=== PATIENT | female | born 2000 | race African-American/Black ===

== ENCOUNTER 2022-03-28 02:20 | Inpatient (IN) ==
[2022-03-28 02:52] LABS: Bilirubin,Urine Negative (Negative); Blood, Urine Trace mg/dL (Negative); Glucose,Urine (UA) Negative (Negative); Ketones,Urine Negative (Negative); Nitrite,Urine Negative (Negative); Protein,Urine Negative (Negative); Urine Appearance Clear (Clear); Urine Color Yellow (Yellow)
[2022-03-28 02:55] LABS: Mucus,Urine Occasional /LPF (Occasional); RBC,Urine 1 /HPF (0-4); Squamous Epithelial Cell,Urine Occasional /HPF (0-10)
[2022-03-28] MEDS ORDERED: BUTORPHANOL 1 MG/ML VIAL IM PRN (03:33)
[2022-03-28] MEDS ORDERED: PROMETHAZINE 25 MG/1 ML VIAL IM PRN (03:34)
[2022-03-28] MEDS ORDERED: LACTATED RINGERS 1,000 ML IV ONE ×2 (03:38→07:33)
[2022-03-28] MEDS ORDERED: METHYLERGONOVINE 0.2 MG/1 ML AMP IM PRN (04:46)
[2022-03-28] MEDS ORDERED: CARBOPROST TROMETHAMINE 250 MCG/ML AMP IM PRN (04:46)
[2022-03-28] MEDS ORDERED: miSOPROStoL 200 MCG TABLET RECTAL PRN (04:46)
[2022-03-28] MEDS ORDERED: TRANEXAMIC ACID 1,000 MG in SODIUM CHLORIDE 0.9% 100 ML IV PRN (04:46)
[2022-03-28] MEDS ORDERED: ONDANSETRON 4 MG/2 ML VIAL IV PRN ×2 (04:46→18:48)
[2022-03-28] MEDS ORDERED: OXYTOCIN/LR 20 UNIT/1,000 ML BAG IV PRN (04:46)
[2022-03-28] MEDS ORDERED: BUTORPHANOL 1 MG/ML VIAL IV PRN (04:49)
[2022-03-28 05:51] LABS: Basophils % 0.3 % (0.0-0.8); Eosinophils # 0.1 10*3/uL (0.0-0.87); Eosinophils % 0.5 % (0.00-10.9); Hematocrit 34.8 VOL% (35.7-47.0); Hemoglobin 11.5 GM/DL (12.0-16.0); Immature Granulocytes % 0.8 %; Lymphocytes % 22.3 % (21.3-54.2); Mean Corpuscular Volume 94.1 FL (87-102); Mean Platelet Volume 11.7 FL (9.6-12.0); Monocytes # 1.5 10*3/uL (0.11-0.8); Monocytes % 11.1 % (1.7-12.7); Platelet Count 194 T/CUMM (130-400); Red Cell Distribution Width 13.5 % (9.3-17.3); White Blood Count 13.2 T/CUMM (4-12)
[2022-03-28 05:58] LABS: Barbiturates Screen,Urine Negative (Negative); Benzodiazepines Screen,Urine Negative (Negative); Cannabinoid Screen,Urine Negative (Negative); Opiate Screen,Urine Negative (Negative); Phencyclidine Screen,Urine Negative (Negative)
[2022-03-28] MEDS ORDERED: AMPICILLIN INJ 2,000 MG in SODIUM CHLORIDE 0.9% 100 ML IV ONE (06:00)
[2022-03-28 06:14] LABS: Alanine Aminotransferase 17 U/L (13-56); Albumin 2.2 G/DL (3.4-5.0); Alkaline Phosphatase 173 U/L (45-117); Aspartate Amino Transferase 20 U/L (0-37); Bilirubin,Total < 0.39 MG/DL (0.20-1.00); Blood Urea Nitrogen 8 MG/DL (7-18); Calcium 8.5 MG/DL (8.5-10.1); Carbon Dioxide 23 MMOL/L (21-32); Chloride 113 MMOL/L (98-107); Glucose 84 MG/DL (74-106); Osmolality,Calculated 277.3 MOS/KG (273-304); Potassium 3.8 MMOL/L (3.5-5.1); Sodium 141 MMOL/L (136-145); Total Protein 5.8 G/DL (6.4-8.2)
[2022-03-28] MEDS ORDERED: CITRIC ACID/SODIUM CITRATE 30 ML UDCUP ONE (07:12)
[2022-03-28] MEDS ORDERED: FAMOTIDINE 20 MG/2 ML VIAL IV ONE ×2 (07:13→07:33)
[2022-03-28] MEDS ORDERED: diphenhydrAMINE 50 MG/1 ML VIAL IV PRN ×2 (07:33)
[2022-03-28] MEDS ORDERED: PROMETHAZINE 25 MG/1 ML VIAL IM ONE (07:33)
[2022-03-28] MEDS ORDERED: NALOXONE 0.4 MG/ML VIAL IV PRN (07:33)
[2022-03-28] MEDS ORDERED: ePHEDrine 50 MG/ML VIAL IV PRN (07:33)
[2022-03-28] MEDS ORDERED: CITRIC ACID/SODIUM CITRATE 30 ML UDCUP PO ONE (07:33)
[2022-03-28] MEDS ORDERED: hydrOXYzine HCL 25 MG/1 ML VIAL IM PRN (07:33)
[2022-03-28] MEDS: fentaNYL 2 MCG/ROPIV 0.2% EPID 100 ML EPIDURAL SCH ×2 (07:41→16:10)
[2022-03-28] MEDS ORDERED: TERBUTALINE 1 MG/1 ML VIAL ONE (07:57)
[2022-03-28 08:20] LABS: RPR Confirm - Less than 1 yr NONREACTIVE (Nonreactive)
[2022-03-28] MEDS: LACTATED RINGERS 1,000 ML IV SCH ×2 (08:36→08:37)
[2022-03-28 09:27] LABS: Mucus,Urine Occasional /LPF (Occasional); RBC,Urine 1 /HPF (0-4); Squamous Epithelial Cell,Urine Occasional /HPF (0-10)
[2022-03-28 09:28] LABS: Bilirubin,Urine Negative (Negative); Blood, Urine Negative (Negative); Glucose,Urine (UA) Negative (Negative); Ketones,Urine Negative (Negative); Nitrite,Urine Negative (Negative); Protein,Urine Negative (Negative); Urine Appearance Clear (Clear); Urine Color Yellow (Yellow); Urine Urobilinogen 0.2 eU/dL (<2.0); Urine pH 5.5 (4.5-8.0)
[2022-03-28] MEDS: AMPICILLIN INJ 1,000 MG in SODIUM CHLORIDE 0.9% 100 ML IV SCH ×2 (09:48→14:41)
[2022-03-28] MEDS: OXYTOCIN/LR 20 UNIT/1,000 ML BAG IV SCH (10:57)
[2022-03-28 14:12] LABS: Rubella Antibody IgG Result Reactive (NonReactive)
[2022-03-28 14:28] LABS: Hepatitis B Surface Ag Quant < 0.10 Index; Hepatitis B Surface Ag Result Non-Reactive (NonReactive)
[2022-03-28 14:32] LABS: HIV Antigen/Antibody Result Nonreactive (Nonreactive)
[2022-03-28] MEDS ORDERED: miSOPROStoL 200 MCG TABLET ONE (14:37)
[2022-03-28] MEDS ORDERED: METHYLERGONOVINE 0.2 MG/1 ML AMP ONE (14:38)
[2022-03-28] MEDS ORDERED: CARBOPROST TROMETHAMINE 250 MCG/ML AMP IM ONE (14:38)
[2022-03-28 18:09] LABS: Cord Arterial Blood HCO3 22.1 MMOL/L
[2022-03-28] MEDS ORDERED: WITCH HAZEL PADS 100/JAR TOP PRN (18:48)
[2022-03-28] MEDS ORDERED: oxyCODONE/ACETAMINOPHEN 5-325 MG TABLET PO PRN (18:48)
[2022-03-28] MEDS ORDERED: RHO(D) IMMUNE GLOBULIN 300 MCG SYRINGE IM ONE (18:48)
[2022-03-28] MEDS ORDERED: LANOLIN 50% CREAM 0.3 OZ TUBE TOP PRN (18:48)
[2022-03-28] MEDS ORDERED: BENZOCAINE 20%/MENTHOL 0.5% SPRAY 56 GM CAN TOP PRN (18:48)
[2022-03-28] MEDS ORDERED: HYDROCORTISONE 2.5% RECTAL CREAM 30 GM TUBE TOP PRN (18:48)
[2022-03-28] MEDS ORDERED: ACETAMINOPHEN 325 MG TABLET PO PRN (18:48)
[2022-03-28] MEDS ORDERED: OXYTOCIN/LR 20 UNIT/1,000 ML BAG IV ONE (18:48)
[2022-03-28] MEDS ORDERED: IBUPROFEN 800 MG TABLET PO PRN (18:48)
[2022-03-28] MEDS ORDERED: BISACODYL 10 MG SUPP RECTAL PRN (18:48)
[2022-03-28] MEDS ORDERED: DIPH/TET/ACEL PERT BOOSTER VACCINE 0.5 ML VIAL IM ONE (19:00)
[2022-03-28] MEDS ORDERED: MEASLES/MUMPS/RUBELLA VACCINE 0.5 ML VIAL SUBCUT ONE (19:00)
[2022-03-28] MEDS: oxyCODONE/ACETAMINOPHEN 5-325 MG TABLET PO PRN (20:19)
[2022-03-29] MEDS: DOCUSATE SODIUM 100 MG CAPSULE PO SCH ×4 (05:33→21:08)
[2022-03-29 06:31] LABS: Basophils % 0.2 % (0.0-0.8); Eosinophils # 0.1 10*3/uL (0.0-0.87); Eosinophils % 0.3 % (0.00-10.9); Hemoglobin 9.3 GM/DL (12.0-16.0); Immature Granulocytes % 0.6 %; Immature Granulocytes Absolute 0.11 #; Lymphocytes # 3.2 10*3/uL (1.4-4.0); Lymphocytes % 17.6 % (21.3-54.2); Mean Corpuscular HGB Conc 33.2 GM/DL (32-36); Mean Corpuscular Volume 93.6 FL (87-102); Mean Platelet Volume 11.3 FL (9.6-12.0); Monocytes # 1.9 10*3/uL (0.11-0.8); Monocytes % 10.3 % (1.7-12.7); Platelet Count 178 T/CUMM (130-400); Red Blood Count 2.99 MC/CUMM (3.8-5.5); Red Cell Distribution Width 13.6 % (9.3-17.3); White Blood Count 18.4 T/CUMM (4-12)
[2022-03-29 06:48] LABS: Alanine Aminotransferase 15 U/L (13-56); Albumin 1.5 G/DL (3.4-5.0); Alkaline Phosphatase 119 U/L (45-117); Aspartate Amino Transferase 22 U/L (0-37); Bilirubin,Total < 0.39 MG/DL (0.20-1.00); Blood Urea Nitrogen 10 MG/DL (7-18); Calcium 7.9 MG/DL (8.5-10.1); Carbon Dioxide 25 MMOL/L (21-32); Chloride 108 MMOL/L (98-107); Glucose 89 MG/DL (74-106); Osmolality,Calculated 276.4 MOS/KG (273-304); Potassium 3.7 MMOL/L (3.5-5.1); Sodium 140 MMOL/L (136-145); Total Protein 4.6 G/DL (6.4-8.2)
[2022-03-29] MEDS: LACTATED RINGERS 1,000 ML IV SCH (11:23)
[2022-03-29] MEDS: OXYTOCIN/LR 20 UNIT/1,000 ML BAG IV SCH (11:26)
[2022-03-29] MEDS: fentaNYL 2 MCG/ROPIV 0.2% EPID 100 ML EPIDURAL SCH (11:28)
[2022-03-29] MEDS: AMPICILLIN INJ 1,000 MG in SODIUM CHLORIDE 0.9% 100 ML IV SCH (11:28)
[2022-03-29] MEDS: oxyCODONE/ACETAMINOPHEN 5-325 MG TABLET PO PRN ×2 (12:17→19:54)
[2022-03-30 05:09] LABS: Basophils % 0.2 % (0.0-0.8); Eosinophils # 0.1 10*3/uL (0.0-0.87); Eosinophils % 0.4 % (0.00-10.9); Hematocrit 23.9 VOL% (35.7-47.0); Hemoglobin 7.9 GM/DL (12.0-16.0); Immature Granulocytes % 0.6 %; Lymphocytes # 4.5 10*3/uL (1.4-4.0); Lymphocytes % 28.1 % (21.3-54.2); Mean Corpuscular HGB Conc 33.1 GM/DL (32-36); Mean Corpuscular Volume 94.8 FL (87-102); Mean Platelet Volume 11.7 FL (9.6-12.0); Monocytes # 1.4 10*3/uL (0.11-0.8); Monocytes % 8.5 % (1.7-12.7); Neutrophils % 62.2 % (38.7-73.9); Platelet Count 199 T/CUMM (130-400); Red Blood Count 2.52 MC/CUMM (3.8-5.5); Red Cell Distribution Width 13.8 % (9.3-17.3)
[2022-03-30 07:27] VITALS: BP 113/68
[2022-03-30] MEDS: DOCUSATE SODIUM 100 MG CAPSULE PO SCH (08:43)
[2022-03-30] MEDS ORDERED: FERROUS SULFATE 325 MG TABLET PO SCH (09:00)
== END 2022-03-30 13:40 | disposition home or self-care (01) | DRG 560 ==
LOC: N.LDOUT 02:20 → N.LD 02:25 → N.OB 21:42
PROVIDERS: ADMIT Obstetrics & Gynecology; ATTEND Obstetrics & Gynecology